=== PATIENT | male | born 1995 | race Caucasian/White ===

== ENCOUNTER 2017-11-14 19:23 | Emergency (ER) | payer OTHER ==
--- NOTE | 2017-11-14 19:53 | PDOC ---
Rapid Medical Evaluation Time Seen by Provider: 11/14/17 19:50 Medical Evaluation: Allergies Allergy/AdvReac Type Severity Reaction Status Date / Time No Known Allergies Allergy Verified 03/21/14 20:17 I have performed a brief in-person evaluation of this patient. The patient presents with a chief complaint of: genital rash since this morning that is painful to touch Pertinent physical exam findings: no exam performed in triage I have ordered the following: GC/chlamydia, UA/culture, RPR The patient will proceed to the ED for further evaluation.
[2017-11-14 19:56] VITALS: BP 103/61; PULSE 98; TEMP 97.9; BMI 27.3
[2017-11-14 20:48] LABS: URINE APPEARANCE CLEAR; URINE BILIRUBIN NEGATIVE (<2.0 mg/dL); URINE BLOOD NEGATIVE (NEGATIVE); URINE COLOR YELLOW; URINE GLUCOSE (UA) NEGATIVE (NEGATIVE); URINE KETONE TRACE (NEGATIVE); URINE LEUK ESTERASE NEGATIVE (NEGATIVE); URINE NITRITE NEGATIVE (NEGATIVE); URINE PROTEIN NEGATIVE (NEGATIVE); URINE UROBILINOGEN NEGATIVE mg/dL (0.2-1.0)
--- NOTE | 2017-11-14 20:55 | PDOC ---
History of Present Illness - General Chief Complaint: Rash Stated Complaint: EVALUATION (PERSONAL) Time Seen by Provider: 11/14/17 19:50 History Source: Patient - History of Present Illness Timing/Duration: reports: other (this am) Past History - Past Medical History Allergies/Adverse Reactions: Allergies Allergy/AdvReac Type Severity Reaction Status Date / Time No Known Allergies Allergy Verified 11/14/17 19:51 Home Medications: Ambulatory Orders No Home Medications 0 dose .ROUTE UTDICT 05/23/13 COPD: No - Immunization History Immunization Up to Date: Yes - Suicide/Smoking/Psychosocial Hx Smoking Status: No Smoking History: Never smoked Number of Cigarettes Smoked Daily: 0 Information on smoking cessation initiated: No Hx Alcohol Use: No Review of Systems - Review of Systems Constitutional: No: Fever ABD/GI: No: Abdominal cramping : No: Burning, Discharge, Testicular Swelling, Testicular Pain *Physical Exam - Vital Signs Last Vital Signs Temp Pulse Resp BP Pulse Ox 97.9 F 98 H 18 103/61 98 11/14/17 19:55 11/14/17 19:55 11/14/17 19:55 11/14/17 19:55 11/14/17 19:55 - Physical Exam General Appearance: Yes: Appropriately Dressed. No: Apparent Distress HEENT: positive: Normal Voice Neck: positive: Supple Respiratory/Chest: negative: Respiratory Distress Gastrointestinal/Abdominal: positive: Soft. negative: Tender Male Genitalia: positive: other (localized erythema to head og penis and to shaft under foreakin, no pustules, papules, ulcers, blisters or cancre seen, foreskin easily retactable). negative: discharge, testicular tenderness, testicular mass Integumentary: positive: Dry, Warm Neurologic: positive: Fully Oriented, Alert, Normal Mood/Affect Medical Decision Making - Medical Decision Making 11/14/17 20:48 22-year-old male, no significant history here with penile rash since this a.m. Patient states he last had sexual intercourse 2-1/2 weeks ago with a new partner and that condom broke during encounter. States he was not having any rash, discharge, dysuria, testicular pain or swelling after encounter but this a.m. noticed rash to penile head and shaft. No pain or itching. No other symptoms at this time. Denies history of STD. Patient well-appearing and stable with mild erythema to head of penis and to shaft underneath foreskin. No ulcers, blister or cancre seen. ? early balanitis, will hold off on tx at this time and send off STD testing. Reason to return to ED d/w pt. referral also given. To refrain from sexual activity until after results and until after condition clears up as d/w pt *DC/Admit/Observation/Transfer Diagnosis at time of Disposition: Rash of penis - Discharge Dispostion Disposition: HOME - Referrals Referrals: Brent Jeffery MD [Staff Physician] - - Patient Instructions Additional Instructions: The source of your rash is unclear at this time. We have sent a urine for gonorrhea, chlamydia, herpes and syphilis. We will contact you if results are positive in 2-3 days. Otherwise, you can contact us at [phone] in 2-3 days Please follow up with Dr Jeffery of urology if rash persists - Post Discharge Activity
== END 2017-11-14 20:54 | disposition home or self-care (01) ==
LOC: JERFT 19:23
DX: N48.89 Other specified disorders of penis (principal)
CPT/HCPCS: 36415; 81003; 86593; 87086; 87491; 87591; 99281-25

== ENCOUNTER 2018-03-03 22:09 | Emergency (ER) | payer OTHER ==
[2018-03-03 22:22] VITALS: BP 123/66; PULSE 62; TEMP 98.4; BMI 27.3
--- NOTE | 2018-03-03 22:46 | PDOC ---
History of Present Illness - General History Source: Patient Exam Limitations: No Limitations - History of Present Illness Initial Comments: 03/03/18 23:36 Patient is a 22 year old male with no significant past medical history who presents to the ED with complaints of lower back pain that began earlier today. Patient reports lifting heavy furniture when he felt his lower back give out, causing immediate pain. He reports lower back pain is a 8/10 stabbing pain that is constant and non radiating. Patient reports the lower back pain is slightly left of the midline but is still close to the spine. He reports taking tylenol and motrin for pain with no relief, prompting him to come into the ED for further evaluation. Denies chest pain, Sob. Denies nausea, vomiting. Denies contact with sick individuals, out of state traveling. Denies fevers, chills. Denies numbness, tingles. Denies any other symptoms. Allergies: None Social history: Lives with mother. No smoking. No alcohol. Current marijuana use. Surgical history: None PMD: Dr. Carlos Palmer <Shivam Karimi - Last Filed: 03/04/18 00:59> <Jennifer Meyer - Last Filed: 03/04/18 20:48> - General Chief Complaint: Pain Stated Complaint: PAIN Time Seen by Provider: 03/03/18 22:45 Past History <Shivam Karimi - Last Filed: 03/04/18 00:59> - Past Medical History COPD: No Other medical history: Pt denies - Immunization History Immunization Up to Date: Yes - Suicide/Smoking/Psychosocial Hx Smoking Status: No Smoking History: Never smoked Have you smoked in the past 12 months: No Number of Cigarettes Smoked Daily: 0 Information on smoking cessation initiated: No Hx Alcohol Use: No Drug/Substance Use Hx: No Substance Use Type: None <Jennifer Meyer - Last Filed: 03/04/18 20:48> - Past Medical History Allergies/Adverse Reactions: Allergies Allergy/AdvReac Type Severity Reaction Status Date / Time No Known Allergies Allergy Verified 03/03/18 22:16 Home Medications: Ambulatory Orders No Home Medications 0 dose .ROUTE UTDICT 05/23/13 Ibuprofen [Motrin -] 600 mg PO TID #30 tablet 03/04/18 Methocarbamol [Robaxin -] 500 mg PO TID #30 tablet 03/04/18 Review of Systems - Review of Systems Able to Perform ROS?: Yes Comments:: 03/04/18 00:59 GENERAL/CONSTITUTIONAL: No fever or chills. No weakness. HEAD, EYES, EARS, NOSE AND THROAT: No change in vision. No ear pain or discharge. No sore throat. CARDIOVASCULAR: No chest pain or shortness of breath. RESPIRATORY: No cough, wheezing, or hemoptysis. GASTROINTESTINAL: No nausea, vomiting, diarrhea or constipation. GENITOURINARY: No dysuria, frequency, or change in urination. MUSCULOSKELETAL: +Lower back pain. No joint or muscle swelling or pain. No neck pain SKIN: No rash NEUROLOGIC: No headache, vertigo, loss of consciousness, or change in strength/ sensation. ENDOCRINE: No increased thirst. No abnormal weight change. HEMATOLOGIC/LYMPHATIC: No anemia, easy bleeding, or history of blood clots. ALLERGIC/IMMUNOLOGIC: No hives or skin allergy. <Shivam Karimi - Last Filed: 03/04/18 00:59> *Physical Exam - Vital Signs Last Vital Signs Temp Pulse Resp BP Pulse Ox 98.4 F 62 18 123/66 99 03/03/18 22:17 03/03/18 22:17 03/03/18 22:17 03/03/18 22:17 03/03/18 22:17 - Physical Exam Comments: 03/04/18 00:59 GENERAL: Awake, alert, and fully oriented, in no acute distress HEAD: No signs of trauma EYES: PERRLA, EOMI, sclera anicteric, conjunctiva clear ENT: Auricles normal inspection, hearing grossly normal, nares patent, oropharynx clear without exudates. Moist mucosa NECK: Normal ROM, supple, no lymphadenopathy, JVD, or masses LUNGS: Breath sounds equal, clear to auscultation bilaterally. No wheezes, and no crackles HEART: Regular rate and rhythm, normal S1 and S2, no murmurs, rubs or gallops ABDOMEN: Soft, nontender, normoactive bowel sounds. No guarding, no rebound. No masses EXTREMITIES: Normal range of motion, no edema. No clubbing or cyanosis. No cords, erythema, or tenderness MUSCULOSKELETAL +Straight leg raise test negative. +More paraspinal tenderness than midline tenderness. +Back spasms. +feels better with percocet. NEUROLOGICAL: Cranial nerves II through XII grossly intact. Normal speech, normal gait SKIN: Warm, Dry, normal turgor, no rashes or lesions noted. <Shivam Karimi - Last Filed: 03/04/18 00:59> - Vital Signs Last Vital Signs Temp Pulse Resp BP Pulse Ox 98.4 F 62 18 123/66 99 03/03/18 22:17 03/03/18 22:17 03/03/18 22:17 03/03/18 22:17 03/03/18 22:17 <Jennifer Meyer - Last Filed: 03/04/18 20:48> ED Treatment Course - Medications Given in the ED: ED Medications Discontinued Medications Generic Name Dose Route Start Last Admin Trade Name Neto PRN Reason Stop Dose Admin Methocarbamol 1,000 mg 03/03/18 23:14 03/03/18 23:23 Robaxin - PO 03/03/18 23:15 1,000 mg ONCE ONE Administration Oxycodone/Acetaminophen 2 combo 03/03/18 23:14 03/03/18 23:23 Percocet 5/325 - PO 03/03/18 23:15 2 combo ONCE ONE Administration <Shivam Karimi - Last Filed: 03/04/18 00:59> Medical Decision Making - Medical Decision Making 03/04/18 00:52 Patient Name: NAVJOT MARK THIS IS A PRELIMINARY REPORT FROM [facility] DATE OF SERVICE: 2018-03-03 23:27:52 IMAGES: [id number] EXAM: LUMBAR SPINE CT W/O CONTRAST HISTORY: Back pain COMPARISON: None. FINDINGS: The lumbar vertebrae are normally aligned. No fracture or destructive bone lesion. L4-5 mild disc bulging. L5-S1 disc bulging probably with a centrally herniated component indenting the canal. No other appreciable abnormalities. Individualized dose optimization techniques were used for this CT 03/04/18 20:46 Pt was lifting furniture at home and injured his low back. He has no sciatica, only paraspinal pain. He is neurologically intact and understands that he will require NSAIDS and muscle relaxants for relief and that he will require MRI for further information. He will follow with his PMD or outpatient neuro as needed. <Jennifer Meyer - Last Filed: 03/04/18 20:48> *DC/Admit/Observation/Transfer - Attestations Scribe Attestion: 03/03/18 23:37 Documentation prepared by Shivam Karimi, acting as medical office manager for Jennifer Meyer MD. <Shivam Karimi - Last Filed: 03/04/18 00:59> - Discharge Dispostion Decision to Admit order: No <Jennifer Meyer - Last Filed: 03/04/18 20:48> Diagnosis at time of Disposition: Bulging disc - Discharge Dispostion Disposition: HOME Condition at time of disposition: Stable - Prescriptions Prescriptions: Ibuprofen [Motrin -] 600 mg PO TID #30 tablet Methocarbamol [Robaxin -] 500 mg PO TID #30 tablet - Referrals Referrals: Carlos Palmer MD [Primary Care Provider] - - Patient Instructions Printed Discharge Instructions: DI for Herniated Disc - Post Discharge Activity Forms/Work/School Notes: Back to Work
[2018-03-03] MEDS ORDERED: METHOCARBAMOL 500 MG TABLET PO ONE (23:14)
[2018-03-03] MEDS ORDERED: METHOCARBAMOL 500 MG TABLET ONE (23:21)
== END 2018-03-04 00:57 | disposition home or self-care (01) ==
LOC: JER 22:09
DX: M51.27 Other intervertebral disc displacement, lumbosacral region (principal); X50.0XXA Overexertion from strenuous movement or load, initial encounter; Y93.89 Activity, other specified; Y92.89 Other specified places as the place of occurrence of the external cause; Y99.8 Other external cause status
CPT/HCPCS: 72131-TC; 99283-25

== ENCOUNTER 2024-01-08 22:45 | Emergency (ER) | payer OTHER ==
[2024-01-08 22:52] VITALS: BP 122/84; PULSE 78; RESP 16; TEMP 98.9; BMI 32.1
[2024-01-08] MEDS ORDERED: KETOROLAC TROMETHAMINE 60 MG/2 ML VIAL ONE (23:30)
[2024-01-08] MEDS ORDERED: predniSONE 20 MG TABLET (UD) ONE (23:30)
[2024-01-08] MEDS ORDERED: CYCLOBENZAPRINE HCL 5 MG TABLET ONE (23:30)
[2024-01-08] MEDS: KETOROLAC TROMETHAMINE 60 MG/2 ML VIAL IM ONE (23:51)
[2024-01-08] MEDS: CYCLOBENZAPRINE HCL 10 MG TABLET (FP) PO ONE (23:51)
[2024-01-08] MEDS: predniSONE 20 MG TABLET (UD) PO ONE (23:51)
== END 2024-01-08 23:56 | disposition home or self-care (01) ==
LOC: FER 22:45
PROC: 3E0233Z Introduction of Anti-inflammatory into Muscle, Percutaneous Approach (ICD-10-PCS; principal; 2024-01-08)
DX: M54.50 Low back pain, unspecified (principal); X50.0XXA Overexertion from strenuous movement or load, initial encounter
CPT/HCPCS: 72100-TC-FY; 99284-25

== ENCOUNTER 2025-01-08 00:40 | Emergency (ER) | payer OTHER, BC ==
[2025-01-08 00:47] VITALS: BP 120/83; PULSE 97; RESP 16; TEMP 98.6; BMI 32.1
[2025-01-08] MEDS ORDERED: IBUPROFEN 600 MG TABLET (FP) PO ONE (01:13)
[2025-01-08] MEDS: IBUPROFEN 600 MG TABLET (FP) PO ONE (01:14)
== END 2025-01-08 02:03 | disposition home or self-care (01) ==
LOC: FER 00:40
DX: S29.012A Strain of muscle and tendon of back wall of thorax, initial encounter (principal); V89.2XXA Person injured in unspecified motor-vehicle accident, traffic, initial encounter; Y92.410 Unspecified street and highway as the place of occurrence of the external cause
CPT/HCPCS: 72110-TC-FY; 99283-25

== ENCOUNTER 2025-01-21 19:25 | Emergency (ER) | payer BC, OTHER ==
[2025-01-21 19:31] VITALS: BP 127/82; RESP 20; TEMP 98.9; BMI 32.8
[2025-01-21] MEDS: SODIUM CHLORIDE 1,000 ML IV STA (20:05)
[2025-01-21 20:12] LABS: ABSOLUTE IMMATURE GRANULOCYTES 0.03 x10^3/uL (0.0-0.031); EOSINOPHIL % 0.3 % (0.8-7.0); EOSINOPHILS # 0.03 x10^3/uL (0.04-0.54); HEMATOCRIT 48.6 % (40.1-51.0); HEMOGLOBIN 16.5 g/dL (13.7-17.5); MEAN PLT VOLUME 9.8 fl (9.4-12.4); MONOCYTE # 0.88 x10^3/uL (0.30-0.82); MONOCYTE % 8.1 % (5.3-12.2); PLATELET COUNT 238 x10^3/uL (163-337); RDW 11.7 % (11.9-15.3)
[2025-01-21] MEDS ORDERED: LOPERAMIDE HCL 2 MG CAPSULE ONE (20:13)
[2025-01-21] MEDS: LOPERAMIDE HCL 2 MG CAPSULE PO ONE (20:15)
[2025-01-21] MEDS: LOPERAMIDE HCL 1 MG/5 ML UNIT DOSE CUP PO ONE (20:15)
[2025-01-21 20:35] LABS: ALBUMIN 4.9 g/dl (3.4-5.0); BILIRUBIN,TOTAL 0.9 mg/dl (0.2-1); CALCIUM 9.5 mg/dl (8.5-10.1); CREATININE 0.9 mg/dl (0.6-1.3); POTASSIUM 3.7 mmol/L (3.5-5.1)
[2025-01-21 21:36] VITALS: PULSE 100
[2025-01-21 23:14] LABS: HCV DIAGNOSTIC IN-HOUSE W/RFLX NON-REACTIVE (NONREACTIVE)
[2025-01-21 23:23] LABS: HIV INTERPRETATION NEGATIVE (NEGATIVE)
== END 2025-01-21 21:42 | disposition home or self-care (01) ==
LOC: FER 19:25
PROC: 3E0337Z Introduction of Electrolytic and Water Balance Substance into Peripheral Vein, Percutaneous Approach (ICD-10-PCS; principal; 2025-01-21)
DX: A08.4 Viral intestinal infection, unspecified (principal); R11.2 Nausea with vomiting, unspecified; R19.7 Diarrhea, unspecified
CPT/HCPCS: 36415; 80053; 85025; 86803; 87389; 99283-25